=== PATIENT | female | born 1970 | race Asian ===

== ENCOUNTER 2017-10-16 07:31 | Observation (INO) | payer MEDICAID ==
[2017-10-16] MEDS: SOD CHLORIDE 0.9% 1,000 ML IV ×2 (08:30→21:50)
[2017-10-16 08:33] LABS: ADD MAN DIFF? NO
[2017-10-16 08:35] LABS: BASOPHIL # 0.1 10^3/ul (0.0-0.1); BASOPHILS % 0.8 % (0.0-2.0); EOSINOPHILS # 0.1 10^3/ul (0.0-0.5); EOSINOPHILS % 1.6 % (0.0-7.0); HEMATOCRIT 34.2 % (37.0-47.0); HEMOGLOBIN 10.7 g/dl (12.0-16.0); LYMPHOCYTES # 1.3 10^3/ul (0.8-2.9); LYMPHOCYTES % 20.9 % (15.0-51.0); MEAN CORPUSCULAR HGB CONC 31.3 g/dl (32.0-37.0); MEAN CORPUSCULAR VOLUME 70.2 fl (82.0-101.0); MEAN PLATELET VOLUME 10.1 fl (7.4-10.4); MONOCYTE # 0.4 10^3/ul (0.3-0.9); MONOCYTES % 5.9 % (0.0-11.0); NEUTROPHIL # 4.4 10^3/ul (1.6-7.5); NEUTROPHILS % 70.5 % (39.0-77.0); PLATELET COUNT 407 10^3/UL (140-415); RED BLOOD COUNT 4.87 10^6/ul (4.20-5.40); RED CELL DISTRIBUTION WIDTH 17.2 % (11.5-14.5)
[2017-10-16 08:35] LABS: WHITE BLOOD COUNT 6.2 10^3/ul (4.8-10.8)
[2017-10-16 08:58] LABS: ALANINE AMINOTRANSFERASE 21 IU/L (13-69); ALBUMIN 4.7 g/dl (3.3-4.9); ALBUMIN/GLOBULIN RATIO 1.34; ALKALINE PHOSPHATASE 52 IU/L (42-121); ANION GAP 18 (8-16); ASPARTATE AMINO TRANSFERASE 23 IU/L (15-46); BILIRUBIN,INDIRECT 0.3 mg/dl (0-1.1); BILIRUBIN,TOTAL 0.3 mg/dl (0.2-1.3); CARBON DIOXIDE 27 mmol/L (21-31); CHLORIDE 104 mmol/L (97-110); GLUCOSE 117 mg/dl (70-220); TOTAL PROTEIN 8.2 g/dl (6.1-8.1)
[2017-10-16 09:02] LABS: BLOOD UREA NITROGEN 14 mg/dl (7-20); CALCIUM 9.4 mg/dl (8.4-10.2); CREATININE 0.59 mg/dl (0.44-1.00); SODIUM 145 mmol/L (135-144)
[2017-10-16 11:45] LABS: INR 0.88; PT RATIO 0.9
[2017-10-16 11:46] LABS: PARTIAL THROMBOPLASTIN TIME 27.2 Sec (25.0-35.0)
[2017-10-16] MEDS ORDERED: MIDAZOLAM 1 MG/ML 2 ML INJ (13:32)
[2017-10-16] MEDS: ISOSULFAN BLUE 1% 5 ML INJ SC (13:51)
[2017-10-16] MEDS ORDERED: morphine 10 MG INJ (14:24)
[2017-10-16] MEDS ORDERED: PROPOFOL 20 ML (15:05)
[2017-10-16] MEDS ORDERED: CEFAZOLIN 1 GM INJ (15:05)
[2017-10-16] MEDS ORDERED: ROCURONIUM 50 MG INJ (15:05)
[2017-10-16] MEDS ORDERED: LIDOCAINE 2% (SDV) 5 ML INJ (15:05)
[2017-10-16] MEDS ORDERED: ONDANSETRON 4 MG INJ (15:06)
[2017-10-16] MEDS ORDERED: GLYCOPYRROLATE 0.4 MG INJ (15:19)
[2017-10-16] MEDS ORDERED: NEOSTIGMINE 3 MG/3 ML SYRINGE (15:19)
[2017-10-16] MEDS ORDERED: morphine 2 MG INJ IV (15:30)
[2017-10-16] MEDS ORDERED: hydrALAzine 20 MG INJ IV (15:30)
[2017-10-16] MEDS ORDERED: METOCLOPRAMIDE 10 MG INJ IV (15:30)
[2017-10-16] MEDS ORDERED: DIPHENHYDRAMINE 50 MG INJ IV (15:30)
[2017-10-16] MEDS ORDERED: ACETAMINOPHEN 1000MG/100ML IV 100 ML IVPB (15:30)
[2017-10-16] MEDS ORDERED: LABETALOL HCL 20MG INJ IV (15:30)
[2017-10-16] MEDS ORDERED: HYDROmorphONE (0.2 MG/ML) 10ML SYG IV ×2 (15:30)
[2017-10-16] MEDS ORDERED: FENTAnyl 50 MCG/ML VIAL IV (15:30)
[2017-10-16] MEDS ORDERED: MEPERIDINE 25 MG INJ (15:45)
[2017-10-16] MEDS: ONDANSETRON 4 MG INJ IV ×3 (16:23→23:18)
[2017-10-16] MEDS: MEPERIDINE 25 MG INJ IV (16:24)
[2017-10-16] MEDS: CEFAZOLIN 1 GM/50 ML (PMX) 50 ML IVPB ×2 (16:28→18:15)
[2017-10-16] MEDS: D5W-0.45 NACL + KCL 20 MEQ 1,000 ML IV (18:17)
[2017-10-16] MEDS: OXYCODONE/ACETAMINOPHEN (5/325) TAB PO (20:34)
[2017-10-17] MEDS: OXYCODONE/ACETAMINOPHEN (5/325) TAB PO (02:13)
[2017-10-17] MEDS: D5W-0.45 NACL + KCL 20 MEQ 1,000 ML IV ×2 (02:13→10:11)
[2017-10-17] MEDS: AMLODIPINE 5 MG TAB PO (09:00)
[2017-10-17] MEDS: SOD CHLORIDE 0.9% 1,000 ML IV (11:10)
== END 2017-10-17 18:30 | disposition home or self-care (01) ==
LOC: SDS 07:31 → REC 15:12 → MS2 17:25
DX: C50.912 Malignant neoplasm of unspecified site of left female breast (principal); Z17.0 Estrogen receptor positive status [ER+]; I10 Essential (primary) hypertension
CPT/HCPCS: 19301; 80053; 84703; 85025; 85610; 85730; 88307; 88309; 88331